=== PATIENT | male | born 1965 | race Caucasian/White ===

== ENCOUNTER 2019-07-09 10:31 | Day surgery (SDC) | payer BC ==
[2019-07-09] MEDS ORDERED: MIDAZOLAM HCL 2MG/2ML VIAL IV ONE (10:32)
[2019-07-09] MEDS ORDERED: LIDOCAINE 2% MDV (20MG/ML) 20ML VIAL IV ONE (10:32)
[2019-07-09] MEDS ORDERED: PROPOFOL 10 MG/ML VIAL IV ONE (10:32)
--- NOTE | 2019-07-10 08:30 | Operative Note ---
OPERATION: COLONOSCOPY with cold snare polypectomy. PREOPERATIVE DIAGNOSIS: Family history of colon cancer and Hemoccult-positive stool. POSTOPERATIVE DIAGNOSIS: Ascending colon polyp. PREPARATION QUALITY: Good. ESTIMATED BLOOD LOSS: Minimum. SPECIMENS: Ascending colon polyp. PROCEDURE: After informed consent was obtained from the patient, he was placed in the left lateral decubitus position in the endoscopy suite, sedated and monitored by the department of anesthesia. Digital rectal examination was unremarkable. A well-lubricated [id number] colonoscope was inserted into the rectum and advanced to the cecum. Preparation quality was good. The cecum and cecal bulb were unremarkable. The ascending colon revealed a 1.2 cm sessile polyp removed in piecemeal fashion with a cold snare. Minimal bleeding was noted. The polyp was retrieved without incident. The remainder of the ascending colon, transverse colon, descending colon, sigmoid colon, and rectum were free of inflammatory changes, mass lesions, or polyps. Forward and J-turn views of the rectum and anorectum were unremarkable. The endoscope was straightened, the rectal ampulla deflated, and the endoscope was removed. RECOMMENDATIONS: I will await the results of tissue histology but suspect the patient will require repeat exam in 3 years. As always, thank you for allowing me to participate in the healthcare of your patients. NICKIE
== END 2019-07-09 11:45 | disposition home or self-care (01) ==
LOC: HOP 10:31
PROVIDERS: ATTEND Internal Medicine Gastroenterology
DX: R19.5 Other fecal abnormalities (principal); Z80.0 Family history of malignant neoplasm of digestive organs; D12.2 Benign neoplasm of ascending colon